=== PATIENT | female | born 1955 | race Two or more races ===

== ENCOUNTER 2021-01-14 18:33 | Emergency (ER) | payer SELFPAY ==
[~2021-01-14] VITALS: Ht 157.5 cm; Wt 61.2 kg
[2021-01-14 20:46] VITALS: BP 127/76
[2021-01-15] MEDS ORDERED: cefTRIAXone SOD 1,000 MG VL IM ONE (00:30)
== END 2021-01-15 01:07 | disposition home or self-care (01) ==
LOC: ER 18:33
DX: H10.33 Unspecified acute conjunctivitis, bilateral (principal)
CPT/HCPCS: 96372; 99283; J0696